=== PATIENT | female | born 1960 | race Caucasian/White ===

== ENCOUNTER 2022-08-26 19:09 | Emergency (ER) | payer MEDICAID ==
[~2022-08-26] VITALS: Ht 152.4 cm; Wt 84.8 kg
[2022-08-26 19:32] VITALS: BP 189/78
== END 2022-08-26 22:02 | disposition left against medical advice (07) ==
LOC: ER 19:09
DX: Z53.21 Procedure and treatment not carried out due to patient leaving prior to being seen by health care provider (principal)
CPT/HCPCS: 99281